=== PATIENT | female | born 1985 | race American Indian/Alaskan Native ===

== ENCOUNTER 2016-11-20 16:52 | Emergency (ER) | payer MEDICAID, OTHER ==
[2016-11-20 17:09] VITALS: BMI 35.5
--- NOTE | 2016-11-20 20:36 | US ---
EXAM: US Biophysical Profile Without Non-Stress Testing EXAM DATE/TIME: 11/20/2016 6:27 PM CLINICAL HISTORY: 31 years old, female; Signs and symptoms; Other: Polyhydromnnios; ; Additional info: Polyhydroaminos TECHNIQUE: Real-time ultrasound of the maternal pelvis for biophysical profile evaluation with image documentation. COMPARISON: There are no prior studies for comparison. FINDINGS: Gestation: There is a single intrauterine gestation in breech presentation. There is a heart rate of 149 beats per minute. Placenta is fundal and grade 2 to 3. Amniotic fluid index measures 14.91 cm. Biophysical profile: Fetus was evaluated for movement, breathing, tone and fluid volume. A score of 2/2 was given for each parameter. IMPRESSION: Normal 8/8 biophysical profile; single breech fetus
[2016-11-21 02:46] VITALS: BP 131/77; PULSE 87; TEMP 98.4; O2SAT 100
== END 2016-11-20 21:40 | disposition home or self-care (01) ==
LOC: H.EROB2 16:52
DX: O40.3XX1 Polyhydramnios, third trimester, fetus 1 (principal); Z3A.36 36 weeks gestation of pregnancy